=== PATIENT | female | born 1940 | race Caucasian/White ===

== ENCOUNTER 2017-06-24 12:38 | Emergency (ER) | payer OTHER ==
[~2017-06-24 12:38] MED LIST: FENO200C PO; ORPH100T PO; PRAV10 PO; TRAM50 PO
[2017-06-24 12:48] VITALS: BP 163/77; PULSE 87; RESP 18; TEMP 97.7; O2SAT 95
[2017-06-24] MEDS ORDERED: PRAV40TA2 PO (12:53)
--- NOTE | 2017-06-24 12:58 | PD ---
HPI Chief Complaint: Allergic/Adverse Reaction Time Seen by Provider: 12:47 Travel History International Travel<30 days: No Contact w/Intl Traveler<30days: No Traveled to known affect area: No History of Present Illness HPI after being in her front yard decorating her mailbox, patient felt a sting to her toes/foot, and noted ants. fairly soon after developed rash to face, chest and right foot, along with swelling to eyelid. PFSH Past Medical History Arthritis: Yes Blood Disorders: No Cancer: No Cardiovascular Problems: Yes High Cholesterol: Yes Diabetes: No Diminished Hearing: No Genitourinary: No Hepatitis: No Hiatal Hernia: Yes Immune Disorder: No Musculoskeletal: Yes Neurologic: No Psychiatric: No Reproductive: No Respiratory: Yes (SLEEP APNEA WITH C-PAP) Immunizations Current: Yes Sleep Apnea: Yes Thyroid Disease: Yes Menopausal: Yes Dilation and Curettage (D&C): Yes Past Surgical History Gynecologic Surgery: Yes (D&C) Joint Replacement: Yes (hardware r shoulder) Oral Surgery: Yes (T&A) Social History Alcohol Use: No Tobacco Use: No Substance Use: No Allergies-Medications (Allergen,Severity, Reaction): Coded Allergies: adhesive (Verified Allergy, Severe, REDDNESS, 06/24/17) ibuprofen (Verified Allergy, Severe, Hives, 06/24/17) ALLERGIC TO ALL NSAIDS lidocaine (Verified Allergy, Severe, HEART RACES, 06/24/17) penicillin G (Verified Allergy, Severe, THROAT SWELLING, 06/24/17) celecoxib (Verified Allergy, Intermediate, ANKLE WELLING; CHEST PAIN AND PRESSURE, 06/24/17) Reported Meds & Prescriptions Reported Meds & Active Scripts Active Epipen-Jr 2-Joshua Inj (Epinephrine) 0.15 mg/0.3 ML Pfpen 0.15 Mg IM ONCE PRN Claritin (Loratadine) 10 Mg Cap 10 Mg PO DAILY Pepcid (Famotidine) 40 Mg Tab 40 Mg PO HS Medrol Dosepak (Methylprednisolone) 4 Mg Dspk 4 Mg PO DIRECTED Per Pharmacist direction Reported Pravastatin 40 Mg Tab 40 Mg PO DAILY Review of Systems Except as stated in HPI: all other systems reviewed are Neg General / Constitutional: No: Fever Eyes: No: Visual changes HENT: No: Headaches Cardiovascular: No: Chest Pain or Discomfort Respiratory: No: Shortness of Breath Gastrointestinal: No: Abdominal Pain Genitourinary: No: Dysuria Musculoskeletal: No: Pain Skin: Positive Rash Neurologic: No: Weakness Psychiatric: No: Depression Endocrine: No: Polydipsia Hematologic/Lymphatic: No: Easy Bruising Physical Exam Narrative GENERAL: SKIN: Warm and dry. erythematous rash to face/chest, slight puffiness to eyelids HEAD: Atraumatic. Normocephalic. EYES: Pupils equal and round. No scleral icterus. No injection or drainage. ENT: No nasal bleeding or discharge. Mucous membranes pink and moist. NECK: Trachea midline. No JVD. CARDIOVASCULAR: Regular rate and rhythm. RESPIRATORY: No accessory muscle use. Clear to auscultation. Breath sounds equal bilaterally. no wheezing, stridor or uvular edema GASTROINTESTINAL: Abdomen soft, non-tender, nondistended. Hepatic and splenic margins not palpable. MUSCULOSKELETAL: Extremities without clubbing, cyanosis, or edema. No obvious deformities. NEUROLOGICAL: Awake and alert. No obvious cranial nerve deficits. Motor grossly within normal limits. Five out of 5 muscle strength in the arms and legs. Normal speech. PSYCHIATRIC: Appropriate mood and affect; insight and judgment normal. Data Data Last Documented VS Orders Orders Iv Access Insert/Monitor (06/24/17 12:50) Methylprednisolone So Succ Inj (Solumedr (06/24/17 13:00) Ecg Monitoring (06/24/17 12:50) Oximetry (06/24/17 12:50) Diphenhydramine Inj (Benadryl Inj) (06/24/17 13:00) Famotidine Inj (Pepcid Inj) (06/24/17 13:00) Sodium Chloride 0.9% Flush (Ns Flush) (06/24/17 13:00) Epinephrine (1:1000) Inj (Adrenalin (1:1 (06/24/17 13:00) Ed Discharge Order (06/24/17 14:03) MDM Medical Decision Making Medical Screen Exam Complete: Yes Emergency Medical Condition: Yes Medical Record Reviewed: Yes Differential Diagnosis allergic reaction v Narrative Course patient treated aggressively for allergic reaction, no anaphylaxis and no e/o respiratory distress...on reevaluation, decreased in edema, hives and continued to be free of hypoxemia/wheezing/stridor/or lip/tongue angioedema Diagnosis Primary Impression: ALLERGIC REACTION Patient Instructions: General Allergic Reaction (ED), General Instructions Scripts Epinephrine Inj (Epipen-Jr 2-Joshua Inj) 0.15 mg/0.3 ML Pfpen 0.15 MG IM ONCE Y for ALLERGIC REACTION, #1 PACK 0 Refills Prov: Zack Matthews MD 06/24/17 Loratadine (Claritin) 10 Mg Cap 10 MG PO DAILY for Allergy Management, #7 CAP 0 Refills Prov: Zack Matthews MD 06/24/17 Famotidine (Pepcid) 40 Mg Tab 40 MG PO HS, #7 TAB 0 Refills Prov: Zack Matthews MD 06/24/17 Methylprednisolone Dosepak (Medrol Dosepak) 4 Mg Dspk 4 MG PO DIRECTED, #1 DSPK 0 Refills Per Pharmacist direction Prov: Zack Matthews MD 06/24/17 Disposition: 01 DISCHARGE HOME Condition: Stable Zack Matthews MD Jun 24, 2017 12:58
[2017-06-24] MEDS ORDERED: SODIUM CHLORIDE 0.9% FLUSH 10 ML FLUSH IV FLUSH PRN (13:00)
[2017-06-24] MEDS ORDERED: diphenhydrAMINE HCL 50 MG/ML VIAL IVP ONE (13:00)
[2017-06-24] MEDS ORDERED: methylPREDNISolone SOD SUCC 125 MG/2 ML VIAL IV PUSH ONE (13:00)
[2017-06-24] MEDS ORDERED: FAMOTIDINE 20 MG/2 ML VIAL IV PUSH ONE (13:00)
[2017-06-24] MEDS ORDERED: EPINEPHrine HCL (1:1000) 1 MG/ML VIAL IM ONE (13:00)
[2017-06-24 13:22] VITALS: BP 136/58; PULSE 88; RESP 17; O2SAT 97
[2017-06-24 13:31] VITALS: BP 151/75; PULSE 82; RESP 17; O2SAT 97
[2017-06-24] MEDS ORDERED: EPIP2INJ IM (14:01)
[2017-06-24] MEDS ORDERED: MEDR4PAK PO (14:01)
[2017-06-24] MEDS ORDERED: FAMO1TAB73 PO (14:01)
[2017-06-24] MEDS ORDERED: CLAR10CA3 PO (14:01)
[2017-06-24 14:14] VITALS: BP 144/52; TEMP 98.1
== END 2017-06-24 14:25 | disposition home or self-care (01) ==
LOC: PHED 12:38
DX: T78.40XA Allergy, unspecified, initial encounter (principal)
CPT/HCPCS: 96372; 96374; 96375; 99284; J0171; J1200; J2930